=== PATIENT | male | born 1980 | race Caucasian/White ===

== ENCOUNTER 2021-06-19 14:28 | Emergency (ER) | payer MEDICAID, OTHER ==
[~2021-06-19] VITALS: Ht 170.2 cm; Wt 82.7 kg
[2021-06-19 14:58] VITALS: BP 148/92
[2021-06-19] MEDS ORDERED: cefTRIAXone 500 MG VIAL IM ONE (15:25)
--- NOTE | 2021-06-19 15:29 | NUR ---
41/M BIB SELF C/O LEFT SHOULDER NUMBNESS RADIATING TO LEFT HAND X 1 MONTH AND C/O URINARY BURNING X TODAY. PT STATED HE WANTS TO CHECK STD ALSO.
[2021-06-19] MEDS ORDERED: GABA300C PO (15:34)
[2021-06-19] MEDS ORDERED: VIB100 PO (15:34)
--- NOTE | 2021-06-19 15:39 | NUR ---
INSULATION ENGINEMAN WITH PT FOR LAB DRAWS.
[2021-06-19] MEDS ORDERED: LIDOCAINE MPF 1% 5 ML ONE (16:07)
[2021-06-19 16:25] VITALS: BP 134/82
--- NOTE | 2021-06-19 16:25 | NUR ---
Patient discharged with v/s stable. Written and verbal after care instructions given FOR NEUROPATHIC PAIN AND MEDICAL SCREENING EXAM and explained. Patient alert, oriented and verbalized understanding of instructions. Ambulatory with steady gait. All questions addressed prior to discharge. ID band removed. Patient advised to follow up with PMD. Rx of GABAPENTIN AND DOXYCYCLINE given. Patient educated on indication of medication including possible reaction and side effects. Opportunity to ask questions provided and answered.
[2021-06-21 08:08] LABS: HEPATITIS B SURFACE ANTIGEN Negative (Negative)
== END 2021-06-19 16:25 | disposition home or self-care (01) ==
LOC: MED 14:28
DX: G62.9 Polyneuropathy, unspecified (principal); Z11.3 Encounter for screening for infections with a predominantly sexual mode of transmission
CPT/HCPCS: 36415; 81002; 86592; 86703; 86803; 87340; 96372; 99283; J0696; J2001; 87491

== ENCOUNTER 2021-06-27 14:26 | Emergency (ER) | payer OTHER ==
[~2021-06-27] VITALS: Ht 170.2 cm; Wt 80.9 kg
[~2021-06-27 14:26] MED LIST: GABA300C PO; VIB100 PO
[2021-06-27 14:49] VITALS: BP 130/74
--- NOTE | 2021-06-27 15:02 | NUR ---
XOCHITL BARAHONA EVALUATING PT AT THIS TIME
--- NOTE | 2021-06-27 15:22 | NUR ---
PT SEEN AND D/C BY DR BARAHONA, NO NURSING INTERVENTIONS PROVIDED
--- NOTE | 2021-06-27 15:23 | NUR ---
Patient discharged with v/s stable. Written and verbal after care instructions ABOUT MEDICAL SCREENING EXAM AND SYPHILIS TEST given and explained. Patient verbalized understanding. Ambulatory with steady gait. All questions addressed prior to discharge. Advised to follow up with PMD.
== END 2021-06-27 15:23 | disposition home or self-care (01) ==
LOC: MED 14:26
DX: A53.9 Syphilis, unspecified (principal); R20.2 Paresthesia of skin; R20.0 Anesthesia of skin; Z79.2 Long term (current) use of antibiotics; Z79.899 Other long term (current) drug therapy
CPT/HCPCS: 99281